=== PATIENT | female | born 1940 | race Caucasian/White ===

== ENCOUNTER → 2017-05-08 | Outpatient (CLI) | payer MEDICARE, OTHER ==
[~2017-05-08] MED LIST: ASPI81TA23 PO; CELE40TA PO; FEXO1TAB97 PO; MELO15TA20 PO; NEXI40CA PO; RAMI10CA PO; TRAM50TA PO
[2017-05-08 09:35] LABS: PROTHROMBIN TIME - PATIENT 10.7 SEC (9.8-11.6)
[2017-05-08 09:48] LABS: AUTOMATED NEUTROPHIL # 3.3 TH/MM3 (1.8-7.7); BASOPHIL % 0.5 % (0.0-2.0); EOSINOPHIL # 0.4 TH/MM3 (0-0.4); EOSINOPHIL % 8.7 % (0.0-4.0); HEMATOCRIT 41.1 % (35.0-46.0); HEMO FLAGS DIFF FINAL; LYMPH % 21.5 % (9.0-44.0); LYMPHOCYTE # 1.1 TH/MM3 (1.0-4.8); MEAN CORPUSCULAR HEMOGLOBIN 31.2 PG (27.0-34.0); MEAN CORPUSCULAR HGB CONC 33.3 % (32.0-36.0); MONO % 5.7 % (0.0-8.0); NEUT % 63.6 % (16.0-70.0); PLATELET COUNT 209 TH/MM3 (150-450); RED BLOOD COUNT 4.37 MIL/MM3 (4.00-5.30); RED CELL DISTRIBUTION WIDTH 12.8 % (11.6-17.2); WHITE BLOOD COUNT 5.1 TH/MM3 (4.0-11.0)
[2017-05-08 10:19] LABS: BICARBONATE 27.5 MEQ/L (21.0-32.0); POTASSIUM 4.2 MEQ/L (3.5-5.1)
--- NOTE | 2017-05-08 10:21 | RADRPT ---
EXAM DATE/TIME: 05/08/2017 10:00 [facility] COMPARISON: No previous studies available for comparison. INDICATIONS : Pre op to evaluate for pneumothorax, pneumonia, or communicable diseases. MEDICAL HISTORY : None. SURGICAL HISTORY : None. ENCOUNTER: Initial ACUITY: 1 day PAIN SCORE: 0/10 LOCATION: Bilateral chest FINDINGS: PA and lateral views of the chest demonstrate the lungs to be symmetrically aerated without evidence of mass, infiltrate or effusion. The cardiomediastinal contours are unremarkable. Osseous structure s are intact. CONCLUSION: No acute disease. oRjas Rangel MD FACR on May 08, 2017 at 10:19 Board Certified Radiologist. This report was verified electronically.
[2017-05-08 10:53] LABS: BLOOD, URINE NEG (NEG); COMMENT (UR) CATH-CULT NOT IND; CULTURE IF INDICATED CATH CULTURE NOT IND; GLUCOSE,URINE NEG (NEG); KETONE, URINE NEG (NEG); NITRITE,URINE NEG (NEG); PH, URINE 6.5 (5.0-8.5); URINE COLOR YELLOW (YELLW/STRAW)
--- NOTE | 2017-05-09 14:34 | EKG ---
Date Performed: 05/08/2017 Time Performed: 08:51:03 PTAGE: 77 years EKG: Sinus rhythm WITH OCCASIONAL SUPRAVENTRICULAR PREMATURE COMPLEXES LOW QRS VOLTAGE IN PRECORDIAL LEADS BORDERLINE ECG NO PREVIOUS TRACING DOCTOR: Moo Fermin Interpretating Date/Time 05/09/2017 14:27:10
== END ==
LOC: CPRE 08:28
PROVIDERS: ATTEND Orthopaedic Surgery
DX: Z01.810 Encounter for preprocedural cardiovascular examination (principal); Z01.811 Encounter for preprocedural respiratory examination; Z01.812 Encounter for preprocedural laboratory examination; M16.0 Bilateral primary osteoarthritis of hip; R94.31 Abnormal electrocardiogram [ECG] [EKG]
CPT/HCPCS: 36415; 71020; 80048; 81001; 85025; 85610; 93005

== ENCOUNTER 2017-05-31 06:20 | Inpatient (IN) | payer MEDICARE, OTHER ==
--- NOTE | 2017-05-23 18:04 | MH ---
cc: LA GUTIERREZ M.D. 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 HISTORY The patient is a 77-year-old white female who has had at least a 4-year history of pain involving the right hip area. She actually presented to the office in May of this past year and at that time reported that within the previous 3 years she had begun to note pain generalized about her left knee for which she did undergo orthopedic evaluation in the [facility] where she was diagnosed as having an arthritic condition and was treated with Synvisc. She did find a treatment to be of some benefit and for the following years she did reasonably well until she began to experience similar discomfort of her right knee undergoing additional orthopedic evaluation and was treated with Orthovisc injection with some limited benefit being noted. She had continued to do reasonably well but thereafter began to note increasing discomfort for which she was requiring use of a cane as full-time ambulatory aid and taking Mobic for pain relief. At the time of her initial office evaluation in May of this past year her clinical picture was suggestive of involvement of her hip area. Radiographs of the pelvis did demonstrate severe degenerative changes of the hip joints bilaterally being more pronounced on the right side. At that time it was discussed with the patient that a component of her symptoms seem to be definitely related to her hip pathology and thus a recommendation was made to consider fluoroscopic intra-articular steroid injection. The patient elected to continue with conservative management otherwise and was followed by her primary care physician. An MRI scan of her lumbar spine did demonstrate multilevel degenerative changes with spinal stenosis and evidence of severe right foraminal stenosis at the L4-5 level that was impinging on the L4 nerve root. The patient was remaining symptomatic with discomfort of her lower back region and thus it was suggested that she might proceed with further disposition of her lumbar spine before any additional orthopedic disposition might be made. The patient was not seen for a number of months thereafter but returned to the office more recently indicating that with the passage of time her symptoms had become definitely more pronounced to the right hip area for which she was having considerable difficulty conforming to all ambulatory activities. Current x-ray studies revealed severe degenerative changes with subtotal obliteration of the joint space an obvious deformation of the femoral head. Findings and treatment options were again reviewed. Emphasis was made that the decision to proceed with surgery involving a right total hip replacement would be left entirely to the patient's discretion. The patient readily admitted that her symptoms were of such degree that she was ready to proceed accordingly and in compliance with her wishes she has been scheduled for admission at this time in order that the above be accomplished. PAST MEDICAL HISTORY: Her past medical history, hospitalizations and surgeries have included a lumbar spine procedure possibly involving laminectomy and disk excision Laparoscopic cholecystectomy Surgical stabilization of a left ankle fracture Tonsillectomy D&C Colonoscopy. The patient's medical illnesses include hypertension Depression Gastroesophageal reflux disease Arthritis. MEDICATIONS current medications 1. Ramipril 10 mg daily. 2. Celexa 40 mg daily. 3. Nexium 40 mg daily. 4. Harriett 180 mg daily. 5. Meloxicam 15 mg daily and 81 mg. 6. Aspirin tablet daily. 7. Tramadol 50 mg p.r.n. pain. ALLERGIES The patient describes a drug allergy to. LEVAQUIN SULFA Both of which have been associated with itching. REVIEW OF SYSTEMS She does wear glasses. Denies headache, seizure, but there is a history of vertigo, diminished auditory acuity for which hearing aids are utilized. No tinnitus. No bleeding gums or dysphagia. She has complete upper and partial lower dentures. Occasional sinus congestion. No epistaxis. No history of pneumonia or tuberculosis. No shortness of breath, no angina. She is medically managed for hypertension. Her appetite is good, bowel movements are regular. No hepatitis, ulcers or hemorrhoids. She is status post cholecystectomy. She has had urinary tract infection in the past. No kidney stones. Fracture of the left ankle as described. She is also undergone psychiatric evaluation for anxiety and depression. Her remaining review of systems is unremarkable and noncontributory. FAMILY HISTORY The patient has been for 29 years this being a second marriage. Her is 69 years of age in reasonably good health. Two daughters and one son described as being in good health. Family history is positive for diabetes, hypertension and heart disease. SOCIAL HISTORY The patient completed a high school education. 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 She denies active use of tobacco for at least 25 years but had been less than a one-pack per day user for 30 years prior to that time. Ethanol consumption on a limited and social basis primarily during the weekends. PHYSICAL EXAMINATION: VITAL SIGNS: Height 5 feet 4 inches, weight 205 pounds. IN GENERAL: An alert, oriented responsive 77-year-old white female who sits quietly upon examination table with mild distress as related to pain about the right hip area. HEAD, EYES, EARS, NOSE, AND THROAT: Eyes, nose and throat pupils are equally round and reactive to light. Extraocular movements full. Sclerae clear. External nares clear. External auditory canals clear. He edentulous in the maxillary distribution. Semi edentulous in the mandibular distribution. Mucous membranes pink and moist. Pharynx clear. NECK: Neck is supple. There is mild discomfort at the extremes of mobility indicated to be chronic in nature. Carotid pulse bilaterally. Trachea midline. Thyroid without enlargement. LUNGS: Clear to auscultation and percussion. BACK: No costovertebral angle tenderness. No discomfort throughout the dorsal lumbar spine. HEART: Regular rhythm. No murmur or gallop. ABDOMEN: Abdomen is mildly obese, soft, nontender. Bowel sounds present. PELVIC: Per primary care physician. EXTREMITIES: Right hip. There is no localizing tenderness to palpation in a seated position there is restricted mobility. The hip joint especially involving internal and external rotation as well as abduction maneuvering pain is associated with the extremes of motion. Straight-leg raising is negative at 80 degrees. Antonio sign is positive. There is shortening of the right lower extremity of at least 1-2 cm magnitude distal sensory grossly intact. Pronounced antalgic gait with cane support. NEUROLOGIC: Cranial nerves II-XII grossly intact excluding diminished auditory acuity. IMPRESSION Severe osteoarthritis right hip pain right hip, limb length discrepancy with shortening of the right leg and gait disturbance. PLAN Right total hip arthroplasty. The nature of the planned surgical procedure the potential complications and risks associated the expectations of surgery and the consent form were thoroughly reviewed with the patient in the presence of her prior to admission to the hospital which reaches indicated her full understanding regarding all the above and given consent to proceed with treatment as outlined. Medical evaluation and clearance for surgery will be completed by her primary care physician Dr. Dean. La Gutierrez MD [facility]/ /4:44 PM /5:01 PM
[~2017-05-31] VITALS: Ht 162.6 cm; Wt 92.8 kg
[2017-05-31] MEDS ORDERED: SODIUM CHLORID 0.9% 500 ML IV PRN (07:30)
[2017-05-31] MEDS ORDERED: POVIDONE IODINE 7.5% SCRUB 118 ML BOTTLE TOPICAL SCH (07:30)
[2017-05-31] MEDS ORDERED: METOPROLOL TARTRATE 25 MG TAB PO PRN (07:30)
[2017-05-31] MEDS ORDERED: CHLORHEXIDINE GLUCONATE 2 % 1 PACK (2 CLOTHS) TOPICAL PRN (07:30)
[2017-05-31] MEDS ORDERED: POVIDONE IODINE 5% (ANTISEPSIS KIT) 4 APPLICATIONS EACH NARE PRN (07:30)
[2017-05-31] MEDS ORDERED: LACTATED RINGER'S 1000 ML IV PRN (07:30)
[2017-05-31] MEDS ORDERED: TYLETAB34 PO (08:43)
[2017-05-31] MEDS ORDERED: FAMOTIDINE 20 MG/2 ML VIAL ONE (09:51)
[2017-05-31] MEDS ORDERED: ACETAMINOPHEN 1000 MG/100 ML 100 ML IV ONE (09:52)
[2017-05-31] MEDS: TRANEXAMIC ACID 1 GM PRIOR TO PROCEDURE IV SCH ×4 (10:45→11:32)
[2017-05-31] MEDS: ceFAZolin 2 GM PREMIX 50 ML IV SCH ×2 (10:57→11:22)
[2017-05-31] MEDS ORDERED: ceFAZolin INJ 1,000 MG VIAL ONE (11:14)
[2017-05-31] MEDS ORDERED: TRANEXAMIC ACID 1 GM POST-OP IV SCH ×2 (12:00)
[2017-05-31] MEDS ORDERED: Post-op Orders (for Pharmacy) MISC XX ONE (13:07)
[2017-05-31] MEDS: DEXT 5%-NACL 0.45% 1000 ML INJ 1,000 ML IV SCH ×2 (13:14→22:12)
[2017-05-31] MEDS ORDERED: ACETAMINOPHEN 325 MG TAB PO PRN (13:15)
[2017-05-31] MEDS ORDERED: DOCUSATE SODIUM 100 MG CAP PO PRN (13:15)
[2017-05-31] MEDS ORDERED: MISCELLANEOUS PHARMACY INFORMATION XX ONE (13:15)
[2017-05-31] MEDS ORDERED: ACETAMINOPHEN/HYDROcodone 325 MG/5 MG TAB PO PRN (13:15)
[2017-05-31] MEDS ORDERED: ZOLPIDEM TARTRATE 5 MG TAB PO PRN (13:15)
[2017-05-31] MEDS ORDERED: ONDANSETRON HCL 4 MG/2 ML VIAL IVP PRN (13:15)
[2017-05-31] MEDS ORDERED: NALOXONE HCL 0.4 MG/ML AMP IV PUSH PRN (13:15)
[2017-05-31] MEDS ORDERED: TRANEXAMIC ACID INJ 1,000 MG in SODIUM CHLORIDE 0.9% INJ 100 ML IV SCH (13:15)
[2017-05-31] MEDS ORDERED: *morphine SULFATE 8 MG/ML PERIprocedure ONLY ONE (13:26)
[2017-05-31] MEDS ORDERED: DO NOT ADM ANY ANTICOAGULANT DRUGS PRN (14:00)
--- NOTE | 2017-05-31 14:12 | PD.CONS ---
[facility] Consult Requested By Dr. Gutierrez Reason for Consult Medical management. Primary Care Physician Kelly Dean MD Diagnoses: History of Present Illness This is a 77-year-old female with past medical history of hypertension, depression, GERD, osteoarthritis who presented with elective surgery with right total hip arthroplasty due to severe osteoarthritis right hip pain right hip, limb length discrepancy with shortening of the right leg and gait disturbance. Patient seen in the PACU. She only complained about right hip pain after waking up for the anesthesia. She stated prior from surgery she has been doing well. All other review system review negative. Past Family Social History Allergies: Coded Allergies: Sulfa (Sulfonamide Antibiotics) (Verified Allergy, Severe, Itching, ) levofloxacin (Verified Allergy, Severe, Itching, 05/31/17) Past Medical History Hypertension Depression GERD Osteoarthritis Past Surgical History Lumbar spine procedure Laparoscopic cholecystectomy Left ankle fracture with surgical stabilization Tonsillectomy D&C Colonoscopy Reported Medications Tylenol-Codeine #3 (Acetaminophen-Codeine) 300-30 mg Tab 1 Tab PO Q6HR PRN Tramadol (Tramadol HCl) 50 Mg Tab 50 Mg PO Q6H PRN Aspirin EC (Aspirin) 81 Mg Tabdr 81 Mg PO DAILY Harriett-D 24 Hour Allergy (Fexofenadine-Pseudoephedrine ER 24 HR) 180-240 Richar 1 Tab PO DAILY Nexium (Esomeprazole DR) 40 Mg Capdr 40 Mg PO DAILY Celexa (Citalopram Hydrobromide) 40 Mg Tab 40 Mg PO DAILY Ramipril 10 Mg Cap 10 Mg PO DAILY Meloxicam 15 Mg Tab 15 Mg PO DAILY Active Ordered Medications Current Medications Lactated Ringer's 1,000 ml @ 30 mls/hr Q24H PRN IV SEE LABEL COMMENTS Last administered on 05/31/17t 09:03; Start 05/31/17 at 07:30; Stop 05/31/17 at 13:55 ; Status DC Sodium Chloride 500 ml @ 30 mls/hr [id number] PRN IV SEE LABEL COMMENTS; Start at 07:30; Stop 05/31/17 at 13:55; Status DC Metoprolol Tartrate (Lopressor) 25 mg BLADDER CLEANER PRN PO SEE LABEL COMMENTS; Start 05/31/17 at 07:30; Stop 06/03/17 at 07:29 Povidone Iodine (Betadine 5% Antisepsis Kit) 1 applic BLADDER CLEANER PRN EACH NARE SEE LABEL COMMENTS Last administered on 05/31/17 09:02; Start 05/31/17 at 07:30 ; Stop 06/03/17 at 07:29 Chlorhexidine Gluconate (Chlorhexidine 2% Cloth) 3 pack BLADDER CLEANER PRN TOPICAL SEE LABEL COMMENTS Last administered on 05/31/17 09:03; Start 05/31/17 at 07:30 ; Stop 06/03/17 at 07:29 Povidone Iodine (Betadine 7.5% Scrub) 1 applic ONCE TOPICAL Last administered on 05/31/17 09:02; Start 05/31/17 at 07:30; Stop 06/03/17 at 07:29 Cefazolin Sodium/ Dextrose 50 ml @ 100 mls/hr BLADDER CLEANER IV Last administered on 05/31/17 10:57; Start 05/31/17 at 07:30; Stop 05/31/17 at 13:59; Status DC Tranexamic Acid 1000 mg/Sodium Chloride 110 ml @ 220 mls/hr ONCE IV Last administered on 05/31/17 10:45; Start 05/31/17 at 09:00; Stop 05/31/17 at 15:00 Tranexamic Acid 1000 mg/Sodium Chloride 110 ml @ 220 mls/hr ONCE IV ; Start at 12:00; Stop 05/31/17 at 18:00 Famotidine (Pepcid Inj) 20 mg STK-MED ONCE .ROUTE ; Start 05/31/17 at 09:51; Stop 05/31/17 at 09:52; Status DC Acetaminophen 100 ml @ As Directed STK-MED ONCE IV ; Start 05/31/17 at 09:52; Stop 05/31/17 at 09:53; Status DC Cefazolin Sodium (Ancef Inj) 2,000 mg STK-MED ONCE .ROUTE Last administered on 05/31/17 11:31; Start 05/31/17 at 11:14; Stop 05/31/17 at 11:15; Status DC Dextrose/Sodium Chloride 1,000 ml @ 125 mls/hr Q8H IV ; Start 05/31/17 at 13:14 Cefazolin Sodium 1000 mg/Sodium Chloride 100 ml @ 200 mls/hr Q6H IV ; Start at 17:00; Stop 06/01/17 at 05:29 Miscellaneous Information (Post-op Orders (for Pharmacy)) STAT ONCE XX ; Start 05/31/17 at 13:07; Stop 05/31/17 at 14:04; Status DC Rivaroxaban (Xarelto) 10 mg Q24H PO ; Start 06/01/17 at 12:00 Miscellaneous Medication ([facility] Information) ONCE ONCE XX ; Start 05/31/17 at 13:15; Stop 05/31/17 at 13:56; Status DC Acetaminophen/ Hydrocodone Bitart ([place] 5-325 Mg) 1 tab Q4H PRN PO PAIN LESS THAN 5 ON SCALE; Start 05/31/17 at 13:15 Acetaminophen/ Hydrocodone Bitart ([place] 5-325 Mg) 2 tab Q4H PRN PO PAIN SCALE 5 TO 10; Start 05/31/17 at 13:15 Acetaminophen (Tylenol) 650 mg Q6H PRN PO FEVER > 101; Start 05/31/17 at 13:15 Tranexamic Acid 1000 mg/Sodium Chloride 110 ml @ 200 mls/hr UNSCH IV ; Start 05/31/17 at 13:15; Stop 05/31/17 at 13:58; Status DC Ondansetron HCl (Zofran Inj) 4 mg Q6H PRN IVP NAUSEA OR VOMITING; Start at 13:15 Docusate Sodium (Colace) 100 mg BID PRN PO CONSTIPATION; Start 05/31/17 at 13: 15 Zolpidem Tartrate (Ambien) 5 mg HS PRN PO SLEEP; Start 05/31/17 at 13:15 Naloxone HCl (Narcan Inj) 0.4 mg UNSCH PRN IV PUSH RESPIRATORY RATE LESS THAN 10; Start 05/31/17 at 13:15; Stop 06/02/17 at 13:14 Morphine Sulfate (Morphine 1 Mg/ ml PSYCHOLOGIST) 30 mg UNSCH IV ; Start 05/31/17 at 13: 15; Stop 06/02/17 at 13:14 PSYCHOLOGIST Dosage Infused (Pha) 1 Q8HR .XX ; Start 05/31/17 at 14:00; Stop 06/02/17 at 13:59 Morphine Sulfate (*morphine INJ PERIprocedure ONLY) 8 mg STK-MED ONCE .ROUTE ; Start 05/31/17 at 13:26; Stop 05/31/17 at 13:27; Status DC Miscellaneous Information ALL NURSING DEPARTME... UNSCH PRN .XX SEE LABEL COMMENTS; Start 05/31/17 at 14:00; Stop 06/01/17 at 13:59 Family History Positive family history for diabetes, hypertension, coronary artery disease Social History Denied any current tobacco use. Prior she smoked one pack per day but stopped 30 years ago. Drinks alcohol occasionally. Physical Exam Vital Signs Vital Signs Date Time Temp Pulse Resp B/P (MAP) Pulse Ox O2 Delivery O2 Flow Rate FiO2 05/31/17 08:15 98.6 78 18 117/66 (83) 97 Physical Exam GENERAL: This is a well-nourished, well-developed patient, in no apparent distress. SKIN: No rashes, ecchymoses or lesions. Cool and dry. HEAD: Atraumatic. Normocephalic. No temporal or scalp tenderness. EYES: Pupils equal round and reactive. Extraocular motions intact. No scleral icterus. No injection or drainage. ENT: Nose without bleeding, purulent drainage or septal hematoma. Throat without erythema, tonsillar hypertrophy or exudate. Uvula midline. Airway patent. NECK: Trachea midline. No JVD or lymphadenopathy. Supple, nontender, no meningeal signs. CARDIOVASCULAR: Regular rate and rhythm without murmurs, gallops, or rubs. RESPIRATORY: Clear to auscultation. Breath sounds equal bilaterally. No wheezes , rales, or rhonchi. GASTROINTESTINAL: Abdomen soft, non-tender, nondistended. No hepato-splenomegaly , or palpable masses. No guarding. MUSCULOSKELETAL: Negative for any lower extremity edema. Right leg still numb. But she is able to wiggle her right toes. NEUROLOGICAL: Awake and alert. Cranial nerves II through XII intact. Normal speech. Assessment and Plan Assessment and Plan This is a 77-year-old female who presented with elective right total hip arthroplasty Severe osteoarthritis right hip pain right hip, limb length discrepancy with shortening of the right leg and gait disturbance. -Status post right total hip arthroplasty by Dr. Gutierrez. -Continue management per orthopedic surgeon. Hypertension/depression/GERD -Resume home medication. DVT prophylaxis -Patient is on Xarelto per orthopedic surgeon. Discussed Condition With patient Teresa Luna MD May 31, 2017 14:12
--- NOTE | 2017-05-31 14:25 | RADRPT ---
EXAM DATE/TIME: 05/31/2017 13:45 [facility] COMPARISON: No previous studies available for comparison. INDICATIONS : Post op right hip surgery. MEDICAL HISTORY : None. SURGICAL HISTORY : None. ENCOUNTER: Initial ACUITY: 1 day PAIN SCORE: 10/10 LOCATION: Right hip FINDINGS: View of the right hip was obtained. Postsurgical changes following hip replacement are noted. Acetabu lar and femoral components are well-seated in satisfactory alignment. Surgical drains noted in place. There are no acute bony abnormalities. CONCLUSION: Satisfactory post operative appearance of the right hip following hip replacement. Marcos Mitchell MD on May 31, 2017 at 14:23 Board Certified Radiologist. This report was verified electronically.
[2017-05-31] MEDS: MORPHINE SULFATE 30 MG/30 ML PCA IV SCH (14:39)
--- NOTE | 2017-05-31 14:42 | MP ---
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 POSTOPERATIVE DIAGNOSIS Severe osteoarthritis of the right hip, pain right hip, limb length discrepancy with shortening of the right leg and gait disturbance. PROCEDURE Right total hip arthroplasty. SURGEON Matt. ANESTHESIA General endotracheal. INDICATIONS A 77-year-old white female with a four-year history of right hip pain who reported the initial onset of pain involving her left knee for which she underwent orthopedic evaluation in the [facility] and was diagnosed as having an arthritic condition for which she was treated with Synvisc. The treatment did not prove to be of significant benefit and over the following year or so she did reasonably well until she began to experience similar discomfort of her right knee undergoing additional orthopedic evaluation and treated with Orthovisc injection with limited benefit described. She did reasonably well but experienced increasing discomfort which she was requiring use of a cane as a full-time ambulatory aid and taking Mobic on a routine basis. She presented to the office in May of this past year and at that time her clinical picture was suggestive of involvement of her hip area. Radiographs of the pelvis did demonstrate severe degenerative changes of the hip joints bilaterally being more pronounced on the right side. At that time a suggestion was made to proceed with a fluoroscopic injection of the right hip to determine what benefit the patient might experience. She elected to continue with conservative management and was followed by her primary care physician. A subsequent MRI scan of the lumbar spine did demonstrate multilevel degenerative changes with spinal stenosis and evidence of severe right foraminal stenosis at the L4-5 level, impinging the L4 nerve root. The patient continued to describe discomfort especially involving her lower back and thus it was suggested that she might proceed with additional evaluation of her lumbar spine before any further orthopedic disposition might be made. The patient was not seen for a number of months thereafter but she returned to the office in the more recent past indicating that with the passage of time her symptoms had become definitely more pronounced about her right hip area for which she was having considerable difficulty conforming to all ambulatory activities. Her x-ray studies revealed severe degenerative changes with subtotal obliteration of the joint space an obvious deformation of the femoral head. Findings and treatment options were reviewed, emphasis being made that the decision to proceed with surgery involving a right total hip replacement would be left entirely to the patient's discretion. The patient readily admitted that she was incapacitated to such a degree that she was ready to proceed with such treatment and in compliance with her wishes she was scheduled for admission at this time in order that the above be accomplished. FORMAT Following induction of satisfactory general anesthesia by endotracheal intubation as completed per the Department of Anesthesia the patient was positioned upon the operating table in a left lateral decubitus fashion. The right hip and lower extremity proper were isolated with a U-drape thereafter being prepped with Betadine solution and draped into a sterile field in the routine manner. Prior to initiation of the actual procedure the standard timeout protocol was completed. All parameters were appropriately addressed and confirmed by operating room personnel. A standard posterolateral approach to the hip was initiated through a sharp skin incision and developed through underlying subcutaneous tissue with hemostasis maintained by electrocautery. By deepening dissection the fascia overlying the gluteus musculature was exposed and thereafter sharply incised to the limits of the incision. The underlying gluteus fibers were bluntly divided. Progressive dissection facilitated exposure of the short external rotator structures. The piriformis tendon being utilized as an anatomical landmark division of these structures was completed in a superior to inferior orientation and reflected medially exposing the posterior capsule. The sciatic nerve was protected. An L-shaped capsulotomy was accomplished and a posterior dislocation of the femoral head was completed. Examination revealed severe degenerative changes with significant erosion of articular cartilage, subchondral bone exposed and hypertrophic bony reaction. The femoral template was positioned for alignment orientation. The neck was scored and thereafter divided with power saw, the amputated segment being passed to the back table as a surgical specimen. Attention was initially directed to the proximal femur. Cancellous bone was harvested. The tapered reamer was inserted for alignment orientation. Sequential rasping and broaching was accomplished from 7 through 13 mm, the calcar vida being utilized at the 13 mm stage. The 13 mm stem was determined to be a favorable fit. Trial component being removed attention was redirected to the acetabulum. The labrum and reactive soft tissue were sharply excised. Progressive reaming was accomplished from 46 through 51 mm. The 52 trial shell was positioned and determined to be satisfactory. Trial components being removed the wound was copiously irrigated with pulsating antibiotic solution, hemostasis maintained by electrocautery. Thereafter a 52 mm trabecular metal Continuum acetabular shell was firmly seated in approximately 45 degrees inclination to the horizontal and slight anteversion. A single 25 mm 6.5 cancellous screw was inserted superiorly to augment fixation. The permanent high wall acetabular liner was affixed to the acetabular shell. The 13 mm trial femoral broach was repositioned and a trial reduction followed utilizing a 36 mm modular head with -6 mm neck length adapter. The hip readily reduced and was carried through a passive range of motion with stability demonstrated at 90 degrees flexion and 45 degrees internal rotation. An open dislocation was completed. The trial femoral components being removed the canal was thoroughly irrigated and dried and thereafter the permanent size 13 standard femoral stem Echo Bi-Metric configuration was firmly seated to which a 36 mm ceramic head with -6 mm neck length adapter was attached. Open reduction completed, repeat range of motion again noted stability as previously described. Final irrigation was accomplished with hemostasis maintained. The posterior capsule was repaired with 0 Vicryl suture. Piriformis tendon and short external rotator structures were re-approximated in a similar manner. Hemovac drain tubes were inserted through superior stab wounds. The fascia of the gluteus musculature was re-approximated with a running 0 Vicryl suture. The remaining portion of the wound was closed in layers in the routine manner, skin margins being re-approximated with a running subcuticular 3-0 Vicryl suture over which Steri-Strips were applied. Xeroform gauze and a bulky dry sterile dressing were placed. The patient was repositioned into a supine orientation where an abduction splint was attached, anesthesia was discontinued and she was thereafter transferred to a hospital bed and returned to the recovery room in satisfactory condition having tolerated her operative procedure well. Estimated blood loss was approximately 250 cc as determined per Anesthesia. Implants included Melisa acetabular components and Biomet femoral components. MD LEXIS Stone/TONIO /1:03 PM /2:15 PM
[2017-05-31 17:18] LABS: HEMATOCRIT 39.6 % (35.0-46.0); REVIEW FLAG FINAL
[2017-05-31] MEDS ORDERED: NORMOSOL R INJ 1,000 ML IV SCH (17:30)
[2017-05-31 17:40] VITALS: BP 116/54; PULSE 102; RESP 18; TEMP 96.3; O2SAT 98
[2017-05-31 19:28] VITALS: BP 99/58; PULSE 102; RESP 17; TEMP 97.3; O2SAT 97
[2017-05-31] MEDS: PCA - TOTAL MG MORPHINE DELIVERED PER SHIFT SCH (22:12)
[2017-06-01] VITALS (7 sets, daily range): BP systolic 118–145; BP diastolic 54–70; PULSE 70–111; RESP 18–19; TEMP 98.1–99.5; O2SAT 92–95
[2017-06-01] MEDS: DEXT 5%-NACL 0.45% 1000 ML INJ 1,000 ML IV SCH ×2 (04:10→21:14)
[2017-06-01] MEDS: MORPHINE SULFATE 30 MG/30 ML PCA IV SCH (04:10)
[2017-06-01] MEDS ORDERED: BISACODYL 10 MG SUPP RECTAL PRN (05:00)
[2017-06-01] MEDS ORDERED: MAGNESIUM HYDROXIDE SUSP 30 ML CUP PO PRN (05:00)
[2017-06-01] MEDS ORDERED: SENNOSIDES 8.6 MG TAB PO PRN (05:00)
[2017-06-01] MEDS: PCA - TOTAL MG MORPHINE DELIVERED PER SHIFT SCH ×2 (05:11→21:50)
[2017-06-01] MEDS ORDERED: HYDR-3516 PO (06:21)
[2017-06-01] MEDS ORDERED: ASPI-183 PO (06:21)
--- NOTE | 2017-06-01 06:24 | HHI.FF ---
Face to Face Verification Diagnosis: (1) Degenerative joint disease (DJD) of hip Physical Therapy Gait training Hip: Total hip, Protocol: Right, Abduction pillow while in bed Right LE Weight Bearing: WB as tolerated Right LE Range of Motion: Active ROM Nursing Dressing Changes: Daily dressing change I have seen patient Soo Blair on 06/01/17. My clinical findings support the need for the requested home health care services because: Limited ability to care for self High risk of falls I certify that my clinical findings support that this patient is homebound because: Post-op weakness Unsteady gait/balance Unsafe to leave home unassisted Marlo Gutierrez MD Jun 01, 2017 06:24
[2017-06-01] MEDS ORDERED: WALKER WHEELS/F1 MIS (06:27)
[2017-06-01] MEDS ORDERED: ADJUSTABLE COMM1 MIS (06:27)
[2017-06-01 08:23] LABS: HEMATOCRIT 33.6 % (35.0-46.0); REVIEW FLAG FINAL
--- NOTE | 2017-06-01 10:42 | HHI.PR ---
Subjective Remarks Follow for medical management Patient has no complaints. She stated that she is tolerating her current diet. Pain is controlled. She is urinating her own. No bowel movement yet. Her is at the bedside during the interview. She stated that she continues to well the plan is for her to go home tomorrow with home health. Objective Vitals Vital Signs Date Time Temp Pulse Resp B/P (MAP) Pulse Ox O2 Delivery O2 Flow Rate FiO2 06/01/17 08:00 99.0 98 19 118/63 (81) 94 06/01/17 05:11 18 06/01/17 04:59 18 06/01/17 04:40 99.5 102 18 145/69 (94) 93 06/01/17 04:10 17 06/01/17 00:25 99.0 111 18 144/68 (93) 93 05/31/17 22:12 18 05/31/17 19:28 97.3 102 17 99/58 (72) 97 05/31/17 17:40 96.3 102 18 116/54 (74) 98 05/31/17 17:25 97.8 86 15 127/64 (85) 97 Nasal Cannula 3 05/31/17 17:15 94 15 111/56 (74) 97 Nasal Cannula 3 05/31/17 16:45 110 15 103/52 (69) 97 Nasal Cannula 3 05/31/17 16:15 97 15 104/52 (69) 97 Nasal Cannula 3 05/31/17 15:45 99 15 113/56 (75) 97 Nasal Cannula 3 05/31/17 15:15 98 15 110/56 (74) 97 Nasal Cannula 3 05/31/17 14:45 92 15 115/56 (75) 97 Nasal Cannula 3 05/31/17 14:39 15 05/31/17 14:15 86 16 125/59 (81) 98 Nasal Cannula 3 05/31/17 14:00 84 16 106/51 (69) 98 Nasal Cannula 3 05/31/17 13:45 86 16 109/55 (73) 100 Nasal Cannula 3 05/31/17 13:30 86 17 113/56 (75) 96 Nasal Cannula 3 05/31/17 13:15 92 15 116/55 (75) 96 Nasal Cannula 3 05/31/17 13:10 98.1 104 15 128/57 (80) 97 Nasal Cannula 3 I/O 05/31/17 05/31/17 05/31/17 06/01/17 06/01/17 06/01/17 07:00 15:00 23:00 07:00 15:00 23:00 Intake Total 1200 ml 2381 ml 483 ml Output Total 240 ml 70 ml 30 ml Balance 960 ml 2311 ml 453 ml Intake Oral 240 ml 240 ml IV Total 2141 ml 243 ml Other 1200 ml Output Urine Total 0 ml Drainage Total 70 ml 30 ml Estimated Blood Loss 240 ml # Voids 1 2 # Bowel Movements 0 0 Result Diagram: 06/01/17 0723 Objective Remarks GENERAL: in NAD NECK: Supple, trachea midline. No JVD or lymphadenopathy. CARDIOVASCULAR: Regular rate and rhythm without murmurs, gallops, or rubs. RESPIRATORY: Breath sounds equal bilaterally. No accessory muscle use. GASTROINTESTINAL: Abdomen soft, non-tender, nondistended. MUSCULOSKELETAL: No cyanosis, or edema. Medications and IVs Current Medications Lactated Ringer's 1,000 ml @ 30 mls/hr Q24H PRN IV SEE LABEL COMMENTS Last administered on 05/31/17 09:03; Start 05/31/17 at 07:30; Stop 05/31/17 at 13:55 ; Status DC Sodium Chloride 500 ml @ 30 mls/hr [id number] PRN IV SEE LABEL COMMENTS; Start at 07:30; Stop 05/31/17 at 13:55; Status DC Metoprolol Tartrate (Lopressor) 25 mg MANAGER SWITCH PRN PO SEE LABEL COMMENTS; Start 05/31/17 at 07:30; Stop 06/03/17 at 07:29 Povidone Iodine (Betadine 5% Antisepsis Kit) 1 applic MANAGER SWITCH PRN EACH NARE SEE LABEL COMMENTS Last administered on 05/31/17 09:02; Start 05/31/17 at 07:30 ; Stop 06/03/17 at 07:29 Chlorhexidine Gluconate (Chlorhexidine 2% Cloth) 3 pack MANAGER SWITCH PRN TOPICAL SEE LABEL COMMENTS Last administered on 05/31/17 09:03; Start 05/31/17 at 07:30 ; Stop 06/03/17 at 07:29 Povidone Iodine (Betadine 7.5% Scrub) 1 applic ONCE TOPICAL Last administered on 05/31/17 09:02; Start 05/31/17 at 07:30; Stop 06/03/17 at 07:29 Cefazolin Sodium/ Dextrose 50 ml @ 100 mls/hr MANAGER SWITCH IV Last administered on 05/31/17 10:57; Start 05/31/17 at 07:30; Stop 05/31/17 at 13:59; Status DC Tranexamic Acid 1000 mg/Sodium Chloride 110 ml @ 220 mls/hr ONCE IV Last administered on 05/31/17 10:45; Start 05/31/17 at 09:00; Stop 05/31/17 at 15:00 ; Status DC Tranexamic Acid 1000 mg/Sodium Chloride 110 ml @ 220 mls/hr ONCE IV Last administered on 05/31/17 14:39; Start 05/31/17 at 12:00; Stop 05/31/17 at 18:00 ; Status DC Famotidine (Pepcid Inj) 20 mg STK-MED ONCE .ROUTE ; Start 05/31/17 at 09:51; Stop 05/31/17 at 09:52; Status DC Acetaminophen 100 ml @ As Directed STK-MED ONCE IV ; Start 05/31/17 at 09:52; Stop 05/31/17 at 09:53; Status DC Cefazolin Sodium (Ancef Inj) 2,000 mg STK-MED ONCE .ROUTE Last administered on 05/31/17 11:31; Start 05/31/17 at 11:14; Stop 05/31/17 at 11:15; Status DC Dextrose/Sodium Chloride 1,000 ml @ 125 mls/hr Q8H IV Last administered on 22:12; Start 05/31/17 at 13:14 Cefazolin Sodium 1000 mg/Sodium Chloride 100 ml @ 200 mls/hr Q6H IV Last administered on 06/01/17 04:03; Start 05/31/17 at 17:00; Stop 06/01/17 at 05:29 ; Status DC Miscellaneous Information (Post-op Orders (for Pharmacy)) STAT ONCE XX ; Start 05/31/17 at 13:07; Stop 05/31/17 at 14:04; Status DC Rivaroxaban (Xarelto) 10 mg Q24H PO ; Start 06/01/17 at 12:00 Miscellaneous Medication ([facility] [place] [facility]acy Information) ONCE ONCE XX ; Start 05/31/17 at 13:15; Stop 05/31/17 at 13:56; Status DC Acetaminophen/ Hydrocodone Bitart (Renick 5-325 Mg) 1 tab Q4H PRN PO PAIN LESS THAN 5 ON SCALE; Start 05/31/17 at 13:15 Acetaminophen/ Hydrocodone Bitart (Renick 5-325 Mg) 2 tab Q4H PRN PO PAIN SCALE 5 TO 10; Start 05/31/17 at 13:15 Acetaminophen (Tylenol) 650 mg Q6H PRN PO FEVER > 101; Start 05/31/17 at 13:15 Tranexamic Acid 1000 mg/Sodium Chloride 110 ml @ 200 mls/hr UNSCH IV ; Start 05/31/17 at 13:15; Stop 05/31/17 at 13:58; Status DC Ondansetron HCl (Zofran Inj) 4 mg Q6H PRN IVP NAUSEA OR VOMITING; Start at 13:15 Docusate Sodium (Colace) 100 mg BID PRN PO CONSTIPATION; Start 05/31/17 at 13: 15 Zolpidem Tartrate (Ambien) 5 mg HS PRN PO SLEEP; Start 05/31/17 at 13:15 Naloxone HCl (Narcan Inj) 0.4 mg UNSCH PRN IV PUSH RESPIRATORY RATE LESS THAN 10; Start 05/31/17 at 13:15; Stop 06/02/17 at 13:14 Morphine Sulfate (Morphine 1 Mg/ ml STATE DIRECTOR) 30 mg UNSCH IV Last administered on 04:10; Start 05/31/17 at 13:15; Stop 06/02/17 at 13:14 STATE DIRECTOR Dosage Infused (Pha) 1 Q8HR .XX Last administered on 06/01/17 05:11; Start 05/31/17 at 14:00; Stop 06/02/17 at 13:59 Morphine Sulfate (*morphine INJ PERIprocedure ONLY) 8 mg STK-MED ONCE .ROUTE Last administered on 05/31/17 13:26; Start 05/31/17 at 13:26; Stop 05/31/17 at 13:27; Status DC Miscellaneous Information ALL NURSING DEPARTME... UNSCH PRN .XX SEE LABEL COMMENTS; Start 12/6/17 at 14:00; Stop 06/01/17 at 13:59 Parenteral Electrolytes 500 ml @ 999 mls/hr Q31M IV Last administered on t 16:45; Start 05/31/17 at 17:30; Stop 05/31/17 at 18:00; Status DC Senna/Docusate Sodium (Makayla-Colace) 2 tab BID PO ; Start 06/01/17 at 09:00 Magnesium Hydroxide (Milk Of Magnesia Liq) 30 ml Q12H PRN PO MILD - MODERATE CONSTIPATION; Start 06/01/17 at 05:00 Sennosides (Senokot) 17.2 mg Q12H PRN PO MODERATE - SEVERE CONSTIPATION; Start 06/01/17 at 05:00 Bisacodyl (Dulcolax Supp) 10 mg Q12H PRN RECTAL SEVERE CONSTIPATION; Start 06/01/17 at 05:00; Stop 06/01/17 at 08:42; Status DC A/P Assessment and Plan This is a 77-year-old female who presented with elective right total hip arthroplasty Severe osteoarthritis right hip pain right hip, limb length discrepancy with shortening of the right leg and gait disturbance. -Status post right total hip arthroplasty on 05/31/[address] Gutierrez. -Continue management per orthopedic surgeon. Hypertension/depression/GERD -Continue home medication. DVT prophylaxis -Patient is on Xarelto per orthopedic surgeon. Discharge Planning Patient is medically clear for discharge. Continue with home medication. Anticipating discharge to home with home health. Teresa Luna MD Jun 01, 2017 10:42
[2017-06-01] MEDS: RIVAROXABAN 10 MG TAB PO SCH (12:35)
[2017-06-01] MEDS: DOCUSATE SODIUM 50 MG/SENNA 8.6 MG TAB PO SCH ×2 (12:35→21:50)
[2017-06-01] MEDS: ACETAMINOPHEN/HYDROcodone 325 MG/5 MG TAB PO PRN (21:50)
[2017-06-02] VITALS (8 sets, daily range): BP systolic 101–157; BP diastolic 50–64; PULSE 70–105; RESP 18–19; TEMP 96.7–100.9; O2SAT 92–97
[2017-06-02] MEDS: DEXT 5%-NACL 0.45% 1000 ML INJ 1,000 ML IV SCH ×3 (02:18→21:14)
[2017-06-02] MEDS: PCA - TOTAL MG MORPHINE DELIVERED PER SHIFT SCH (02:19)
[2017-06-02] MEDS: ACETAMINOPHEN/HYDROcodone 325 MG/5 MG TAB PO PRN ×5 (02:20→23:10)
--- NOTE | 2017-06-02 10:26 | HHI.PR ---
Subjective Remarks Patient seen and examined patient reports improvement of right hip pain Afebrile and no acute event overnight Objective Vitals Vital Signs Date Time Temp Pulse Resp B/P (MAP) Pulse Ox O2 Delivery O2 Flow Rate FiO2 06/02/17 08:00 99.0 89 18 113/57 (75) 92 06/02/17 03:38 99.8 105 18 149/61 (90) 93 06/02/17 00:10 100.9 103 19 157/64 (95) 95 06/01/17 21:50 18 06/01/17 20:50 Nasal Cannula 3.00 06/01/17 19:15 98.4 111 18 136/54 (81) 92 06/01/17 16:00 98.8 95 19 120/65 (83) 95 06/01/17 14:36 94 Nasal Cannula 3.00 06/01/17 12:00 98.1 70 18 124/70 (88) 95 I/O 06/01/17 06/01/17 06/01/17 06/02/17 06/02/17 06/02/17 07:00 15:00 23:00 07:00 15:00 23:00 Intake Total 483 ml 720 ml 720 ml Output Total 30 ml 80 ml 20 ml Balance 453 ml 640 ml 700 ml Intake Oral 240 ml 720 ml 720 ml IV Total 243 ml Drainage Total 30 ml 80 ml 20 ml # Voids 2 6 10 # Bowel Movements 0 0 1 Result Diagram: 06/01/17 0723 Imaging Last Impressions Hip X-Ray 05/31/17 1314 Signed Impressions: Service Date/Time: Wednesday, May 31, 2017 13:45 - CONCLUSION: Satisfactory post operative appearance of the right hip following hip replacement. Marcos Mitchell MD Objective Remarks GENERAL: NAD SKIN: Warm and dry. HEAD: Normocephalic. EYES: No scleral icterus. No injection or drainage. NECK: Supple, trachea midline. No JVD or lymphadenopathy. CARDIOVASCULAR: Regular rate and rhythm without murmurs, gallops, or rubs. RESPIRATORY: Breath sounds equal bilaterally. No accessory muscle use. GASTROINTESTINAL: Abdomen soft, non-tender, nondistended. MUSCULOSKELETAL: No cyanosis, or edema. s/p right hip repair-neurovascular intact BACK: Nontender without obvious deformity. No CVA tenderness. A/P Assessment and Plan 77 yrs old female with s/p Right Hip Arthroplasty 05/31/17 Management per orthopedic surgery Pain management accordingly PT to treat and eval Hypertension/depression/GERD Continue home medication. DVT prophylaxis: Xarelto Discharge Planning Discharge per orthopedic surgery Kenneth Silverio MD Jun 02, 2017 10:26
[2017-06-02] MEDS: DOCUSATE SODIUM 50 MG/SENNA 8.6 MG TAB PO SCH ×2 (10:36→21:00)
[2017-06-02] MEDS: RIVAROXABAN 10 MG TAB PO SCH (12:56)
[2017-06-03] MEDS: DEXT 5%-NACL 0.45% 1000 ML INJ 1,000 ML IV SCH (05:14)
[2017-06-03] MEDS: ACETAMINOPHEN/HYDROcodone 325 MG/5 MG TAB PO PRN ×2 (06:47→10:54)
[2017-06-03 08:00] VITALS: BP 117/69; PULSE 92; RESP 18; TEMP 97.4; O2SAT 94
[2017-06-03] MEDS: DOCUSATE SODIUM 50 MG/SENNA 8.6 MG TAB PO SCH (09:00)
--- NOTE | 2017-06-03 10:14 | HHI.PR ---
Subjective Remarks Patient seen and examined She was up ambulating today she complains of urgency but no dysuria Objective Vitals Vital Signs Date Time Temp Pulse Resp B/P (MAP) Pulse Ox O2 Delivery O2 Flow Rate FiO2 06/03/17 08:00 97.4 92 18 117/69 (85) 94 06/02/17 23:15 96.7 93 18 125/61 (82) 95 06/02/17 19:35 98.9 70 18 107/52 (70) 97 06/02/17 17:51 95 Nasal Cannula 3.00 06/02/17 16:00 99.4 90 18 118/57 (77) 95 06/02/17 12:00 98.9 89 18 101/50 (67) 93 I/O 06/02/17 06/02/17 06/02/17 06/03/17 06/03/17 06/03/17 07:00 15:00 23:00 07:00 15:00 23:00 Intake Total 720 ml 600 ml 720 ml 480 ml Output Total 20 ml Balance 700 ml 600 ml 720 ml 480 ml Intake Oral 720 ml 600 ml 720 ml 480 ml Drainage Total 20 ml # Voids 10 6 6 9 # Bowel Movements 1 1 0 0 Result Diagram: 06/01/17 0723 Objective Remarks GENERAL: NAD SKIN: Warm and dry. HEAD: Normocephalic. EYES: No scleral icterus. No injection or drainage. NECK: Supple, trachea midline. No JVD or lymphadenopathy. CARDIOVASCULAR: Regular rate and rhythm without murmurs, gallops, or rubs. RESPIRATORY: Breath sounds equal bilaterally. No accessory muscle use. GASTROINTESTINAL: Abdomen soft, non-tender, nondistended. MUSCULOSKELETAL: No cyanosis, or edema. s/p right hip repair-neurovascular intact BACK: Nontender without obvious deformity. No CVA tenderness. A/P Assessment and Plan 77 yrs old female with s/p Right Hip Arthroplasty 05/31/17 Management per orthopedic surgery Pain management accordingly PT to treat and eval Hypertension/depression/GERD Continue home medication. DVT prophylaxis: Xarelto Discharge Planning Discharge per orthopedic surgery Kenneth Silverio MD Jun 03, 2017 10:14
--- NOTE | 2017-06-03 13:15 | EKG ---
Date Performed: 06/03/2017 Time Performed: 05:31:26 PTAGE: 77 years EKG: Sinus rhythm Anterior T wave changes are nonspecific Borderline ECG PREVIOUS TRACING 05/08/17 Compared to prior tracing no significant change DOCTOR: Bharat Wilks Interpretating Date/Time 06/03/2017 13:13:33
--- NOTE | 2017-06-03 19:22 | MD ---
cc: DAVID DEAN MD, NORMAN ADMISSION DATE: 05/31/2017 DISCHARGE DATE: 06/03/2017 ADMISSION DIAGNOSIS Severe osteoarthritis of the right hip, pain right hip, limb length discrepancy with shortening of right leg and gait disturbance. DISCHARGE DIAGNOSIS Severe osteoarthritis of the right hip, pain right hip, limb length discrepancy with shortening of right leg and gait disturbance. HISTORY The patient is a 77-year-old white female with a 4-year history of right hip pain who had noted the onset of her symptoms initially being localized to her left knee for which she had undergone previous orthopedic evaluation in the [facility] where she was diagnosed as having an arthritic condition and treated with Synvisc. Treatment proved to be of limited benefit and she did reasonably well for an interval of time thereafter but continuing to experience discomfort about the knee area for which she underwent additional orthopedic evaluation and was treated with orthovisc injection. She continued with ambulatory activities requiring use of a cane as a full-time ambulatory aid while taking Mobic. She presented to the undersigned physician in May of this past year and, at that time, her clinical picture was more suggestive of involvement of her hip area. Radiographs of the pelvis did demonstrate severe degenerative changes of her hip joints bilaterally, being more pronounced on the right side. At that time, a suggestion was made for the patient to proceed with a fluoroscopic intra-articular steroid injection. She continued to conform to conservative management while being followed by her primary care physician. A later MRI scan of her lumbar spine demonstrated multilevel degenerative changes with spinal stenosis. The patient remained symptomatic with pain including her lower back region for which she did undergo additional orthopedic disposition. She was lost to followup for an interval of time until returning to the office in the more recent past indicating that she was having increasing pain about her right hip area for which she was having difficulty conforming to all ambulatory activities. Her current x-ray studies revealed severe degenerative changes with subtotal obliteration of the joint space and obvious deformation of the femoral head. Findings and treatment options were reviewed. Emphasis was made regarding the fact that the decision to proceed with surgery involving total hip replacement would be left entirely to the patient's discretion. The patient felt that her symptoms had progressed to that point in time where she was ready to proceed accordingly and in compliance with her wishes she was scheduled for admission at this time in order that the above be accomplished. Her physical examination at the time of admission revealed no localizing tenderness about her right hip. There was restricted mobility of the hip joint, especially involving internal and external rotation as well as abduction maneuvering with pain at the extreme of motion. Straight-leg raising was negative at 80 degrees. Antonio sign positive. Shortening of the right lower extremity of at least 1-2 cm magnitude. Distal sensory grossly intact. Pronounced antalgic gait with cane support. HOSPITAL COURSE Prior to admission to the hospital, the patient had undergone medical evaluation and clearance for surgery as completed by her primary care physician, Dr. Dean. She was taken to the operating room on May 31, 2017 and, on that date, underwent a right total hip arthroplasty completed in an uncomplicated manner. The patient was noted to have tolerated her operative procedure well. Her postoperative course stable thereafter. Hemoglobin/hematocrit assessment postoperatively was 12.7 and 39.6 respectively. The patient was progressively mobilized under the guidance of physical therapy being permitted weightbearing to tolerance about the right lower extremity. Follow up examination of her surgical wound noted to be intact, healing favorably, no evidence of infection. Medical followup per the hospitalist service. DVT prophylaxis initiated. resident services supervisor was consulted to assist with discharge planning. The patient had expressed her desire to be discharged home and continue her rehabilitation on an outpatient basis. Plans were finalized in this regard and, pending medical clearance, she was scheduled for discharge on the third postoperative day at which time she was noted to be making favorable progress with regards to her rehab program. She was scheduled be seen in office followup in approximately 4 weeks. Her condition at the time of discharge was stable. Prognosis favorable. MEDICATIONS Discharge medications included 1. Hydrocodone 5/325 #60. 2. Aspirin 325 mg 1 tablet twice daily for 4 weeks #60. MD LEXIS Stone/ /6:30 AM /7:12 PM
== END 2017-06-03 11:48 | disposition home health service (06) | DRG 470 ==
LOC: HSDI 06:20 → EDUNIT# 10:00 → N06A 17:44
PROVIDERS: ADMIT Orthopaedic Surgery; ATTEND Orthopaedic Surgery
PROC: 0SR90JA Replacement of Right Hip Joint with Synthetic Substitute, Uncemented, Open Approach (ICD-10-PCS; principal; 2017-05-31 10:23)
DX: M16.11 Unilateral primary osteoarthritis, right hip (principal); I10 Essential (primary) hypertension; F32.9 Major depressive disorder, single episode, unspecified; M51.36 Other intervertebral disc degeneration, lumbar region; M48.061 Spinal stenosis, lumbar region without neurogenic claudication; K21.9 Gastro-esophageal reflux disease without esophagitis; Z87.891 Personal history of nicotine dependence; Z83.3 Family history of diabetes mellitus; Z82.49 Family history of ischemic heart disease and other diseases of the circulatory system
CPT/HCPCS: 73501; 85014; 85018; 86850; 86900; 86901; 88304; 88305; 88311; 93005; C1776; J0131; J0690; J2270; J7120